=== PATIENT | female | born 1955 | race Caucasian/White ===

== ENCOUNTER 2017-09-29 16:50 | Emergency (ER) | payer BC ==
[~2017-09-29 16:50] MED LIST: amLODIPine 5 MG Tab ONE
--- NOTE | 2017-09-29 17:17 | EDM.PDOC ---
ED HPI GENERAL MEDICAL PROBLEM - General Stated Complaint: DIZZINESS Time Seen by Provider: 09/29/17 17:05 Source of Information: Reports: Patient History Limitations: Reports: No Limitations - History of Present Illness INITIAL COMMENTS - FREE TEXT/NARRATIVE: According to patient she claims that she has had dizziness all the time for several years. But today she felt very dizzy. her description is that her head feels fuzzy and heavy. When she gets up she feels like she is getting black out and fells weak in her legs. No vertigo. No weakness in the extremities. No tingling or numbness. No slurred speech or facial drooping. Apparently patient claims she has high blood pressure and she was just started on losartan HCTZ 10 days ago. No nausea or vomiting. no cough , abdominal pain. no other symptoms. Onset: Gradual Duration: Getting Worse Improves with: Reports: None Worsens with: Reports: None Associated Symptoms: Denies: Confusion, Chest Pain, Cough, Diaphoresis, Fever/ Chills, Headaches, Loss of Appetite, Malaise, Nausea/Vomiting, Rash, Seizure, Shortness of Breath, Syncope, Weakness - Related Data Home Meds: Home Meds Levothyroxine 1 tab PO DAILY 09/29/17 [History] Losartan/Hydrochlorothiazide [Losartan-HCTZ 50-12.5 MG] 1 tab PO DAILY 09/29/17 [History] ED ROS GENERAL - Review of Systems Review Of Systems: See Below Constitutional: Denies: Fever, Chills, Night Sweats, Diaphoresis HEENT: Denies: Contact Lenses, Rhinitis, Throat Pain, Throat Swelling Respiratory: Denies: Cough, Sputum Cardiovascular: Reports: Lightheadedness. Denies: Chest Pain GI/Abdominal: Denies: Abdominal Pain, Nausea, Vomiting : Denies: Dysuria, Flank Pain Musculoskeletal: Denies: Joint Pain, Joint Swelling Skin: Denies: Bruising, Pruritis, Rash Neurological: Reports: Dizziness. Denies: Headache, Numbness, Paresthesia, Tingling, Tremors, Trouble Speaking, Difficulty Walking, Weakness, Change in Speech, Gait Disturbance ED EXAM, GENERAL - Physical Exam Exam: See Below Exam Limited By: No Limitations General Appearance: Alert, WD/WN, No Apparent Distress, Anxious Eye Exam: Bilateral Eye: EOMI, PERRL Ears: Normal External Exam, Normal Canal, Hearing Grossly Normal, Normal TMs Ear Exam: Bilateral Ear: Auricle Normal, Canal Normal, TM normal Nose: Normal Inspection, Normal Mucosa, No Blood Throat/Mouth: Normal Inspection, Normal Lips, Normal Teeth, Normal Gums, Normal Oropharynx, Normal Voice, No Airway Compromise Head: Atraumatic, Normocephalic Neck: Normal Inspection, Supple, Non-Tender, Full Range of Motion Peripheral Pulses: 2+: Carotid (L), Carotid (R), Radial (L), Radial (R) GI/Abdominal: Normal Bowel Sounds, Soft, Non-Tender, No Organomegaly, No Distention, No Abnormal Bruit, No Mass Extremities: Normal Inspection, Normal Range of Motion, Non-Tender, Normal Capillary Refill, No Pedal Edema Neurological: Alert, Oriented, CN II-XII Intact, Normal Cognition, Normal Gait, Normal Reflexes, No Motor/Sensory Deficits Psychiatric: Anxious Skin Exam: Warm, Intact Course - Vital Signs Text/Narrative:: Pt's clinical exam is normal. No neuro deficits noted. Pt is very concerned. She claims she feels dizzy all the time but was worse today. She is fearing having a stroke. Her BP is 171/82mmhg, still not well controlled. her CBC, CMP are normal. Her EKG is in sinus rhythm with rate of 70/min. Her CT head is negative. Troponin is negative. Pt reassured. To bring her BP under 140/90mmhg, I did start her on amlodipine 5mg daily. advised to drink plenty of fluids. Advised to followup in clinic next week. - Orders/Labs/Meds Orders: Active Orders 24 hr Category Date Time Status EKG Documentation Completion [RC] ASDIRECTED Care 09/29/17 17:16 Active Head wo Cont [CT] Stat Exams 09/29/17 17:10 Taken Labs: Laboratory Tests 09/29/17 09/29/17 09/29/17 Range/Units 17:15 17:15 17:15 WBC 7.7 D (4.0-11.0) K/uL RBC 4.54 (3.80-5.80) M/uL Hgb 14.1 (11.5-16.5) g/dL Hct 41.7 (37.0-47.0) % MCV 92 (76-96) fL MCH 31.1 (27.0-32.0) pg MCHC 33.8 (31.0-35.0) g/dL RDW 13.1 (11.0-16.0) % Plt Count 263 (150-500) K/uL MPV 9.8 (6.0-10.0) fL Neut % (Auto) 72.9 H (45.0-70.0) % Lymph % (Auto) 16.9 L (20.0-40.0) % Taylor % (Auto) 8.3 (3.0-10.0) % Eos % (Auto) 1.6 (1.0-5.0) % Baso % (Auto) 0.3 (0.0-0.5) % Neut # (Auto) 5.64 (2.00-7.50) K/uL Lymph # (Auto) 1.31 L (1.50-4.00) K/uL Taylor # (Auto) 0.64 (0.20-0.80) K/uL Eos # (Auto) 0.12 (0.04-0.40) K/uL Baso # (Auto) 0.02 (0.02-0.10) K/uL Sodium 137 (136-145) mmol/L Potassium 3.8 (3.5-5.1) mmol/L Chloride 100 (98-107) mmol/L Carbon Dioxide 26.8 (21.0-32.0) mmol/L Anion Gap 14.0 (5.0-15.0) mmol/L BUN 16 (8-26) mg/dL Creatinine 0.82 (0.55-1.02) mg/dL Est Cr Clr Drug Dosing TNP Estimated GFR (MDRD) > 60 (>60) MLS/MIN BUN/Creatinine Ratio 19.5 (6-25) Glucose 92 (74-100) mg/dL Calcium 9.4 (8.5-10.1) mg/dL Total Bilirubin 0.7 D (0.0-1.0) mg/dL AST 27 (15-37) U/L ALT 35 (12-78) U/L Alkaline Phosphatase 109 (46-116) U/L Troponin I < 0.017 (0.000-0.060) ng/mL Total Protein 7.9 (6.4-8.2) g/dL Albumin 4.1 (3.4-5.0) g/dL Globulin 3.8 (2.2-4.2) g/dL Albumin/Globulin Ratio 1.1 (0.8-2.0) Meds: Medications Discontinued Medications Generic Name Dose Route Start Last Admin Trade Name Dunia PRN Reason Stop Dose Admin Amlodipine Besylate Confirm 09/29/17 17:41 Norvasc Administered 09/29/17 17:42 Dose 15 mg .ROUTE .STK-MED ONE Departure - Departure Time of Disposition: 17:45 Disposition: Home, Self-Care 01 Condition: Fair Clinical Impression: Dizziness, Uncontrolled hypertension - Discharge Information Referrals: PCP,None [Primary Care Provider] - - Problem List & Annotations (1) Dizziness SNOMED Code(s): 280749411, 433407237 Code(s): R42 - DIZZINESS AND GIDDINESS Status: Acute (2) Uncontrolled hypertension SNOMED Code(s): 35847379, 39826077 Code(s): I10 - ESSENTIAL (PRIMARY) HYPERTENSION Status: Acute - Problem List Review Problem List Initiated/Reviewed/Updated: Yes - My Orders Last 24 Hours: My Active Orders 09/29/17 17:10 Head wo Cont [CT] Stat 09/29/17 17:16 EKG Documentation Completion [RC] ASDIRECTED - Assessment/Plan Last 24 Hours: My Active Orders 09/29/17 17:10 Head wo Cont [CT] Stat 09/29/17 17:16 EKG Documentation Completion [RC] ASDIRECTED Assessment:: Dizziness uncontrolled hypertension Plan: Pt's clinical exam is normal. No neuro deficits noted. Pt is very concerned. She claims she feels dizzy all the time but was worse today. She is fearing having a stroke. Her BP is 171/82mmhg, still not well controlled. her CBC, CMP are normal. Her EKG is in sinus rhythm with rate of 70/min. Her CT head is negative. Troponin is negative. Pt reassured. To bring her BP under 140/90mmhg, I did start her on amlodipine 5mg daily. advised to drink plenty of fluids. Advised to followup in clinic next week.
[2017-09-29] MEDS ORDERED: amLODIPine 5 MG Tab ONE (17:41)
== END 2017-09-29 17:58 | disposition home or self-care (01) ==
LOC: LB.ED 16:50
DX: I10 Essential (primary) hypertension (principal); Z79.899 Other long term (current) drug therapy
CPT/HCPCS: 36415; 70450; 80053; 84484; 85025; 93005; 99284-25; A9270-GY

== ENCOUNTER 2023-04-04 13:32 | Emergency (ER) | payer MEDICARE ==
[2023-04-04] MEDS ORDERED: Sodium Chloride 0.9% 10 ML Syringe FLUSH PRN (14:22)
[2023-04-04] MEDS: Ketorolac 60 MG/2 ML SDV IVPUSH ONE (14:56)
[2023-04-04] MEDS: traMADol 50 MG Tab PO ONE (15:14)
[2023-04-04] MEDS: Ketorolac 30 MG/ML SDV ONE (15:20)
[2023-04-05] MEDS: traMADol 50 MG Tab ONE (08:46)
== END 2023-04-04 15:28 | disposition home or self-care (01) ==
LOC: LB.ED 13:32
DX: S42.252A Displaced fracture of greater tuberosity of left humerus, initial encounter for closed fracture (principal); W19.XXXA Unspecified fall, initial encounter
CPT/HCPCS: 73030; 96374; 99283; A9270; J1885